=== PATIENT | female | born 1990 | race Hispanic/Latino ===

== ENCOUNTER 2023-11-17 08:59 | Outpatient (CLI) | payer OTHER ==
[2023-11-17 10:35] LABS: #Eosinphils 0.2 10x3/uL (0.0-0.5); #Monocytes 0.4 10x3/uL (0.0-1.1); #Neutrophils 4.8 10x3/uL (1.5-8.4); %Basophils 0.4 % (0.0-2.0); %Eosinophils 2.5 % (0.0-6.0); %Lymphocytes 35.5 % (18.0-47.0); %Neutrophils 56.4 % (40.0-75.0); Hematocrit 41.9 % (34.9-44.5); Hemoglobin 14.2 g/dL (12.0-15.5); Mean Corpuscular HGB CONC 33.9 g/dL (32.0-36.0); Mean Corpuscular Hemoglobin 29.7 pg (27.0-33.0); Mean Corpuscular Volume 87.7 fl (81.6-98.3); Mean Platelet Volume 9.4 fl (7.4-10.4); Platelet Count 331 10x3/uL (150-450); RBC Distribution Width 12.1 % (11.5-14.5); Red Blood Cell (RBC) Count 4.78 10x6/uL (3.90-5.03); White Blood Cell (WBC) Count 8.5 10x3/uL (3.5-10.5)
[2023-11-17 11:13] LABS: BHCG - Serum Negative (NEGATIVE); Pregs Control Background? CLEAR/WHITE (CLR/WHITE); Pregs Control Bar Appear? YES (CONTROL BAR)
[2023-11-17 11:14] LABS: Anion Gap 14 mmol/L (10-20); BUN (Urea Nitrogen) 9 mg/dL (7.0-18.7); Calc. Creatinine Clearance 0 mL/min (70-130); Calcium 9.4 mg/dL (7.8-10.44); Carbon Dioxide 24 mmol/L (22-29); Chloride 104 mmol/L (98-107); Estimated GFR 124; Glucose 79 mg/dL (70-105); Potassium 4.1 mmol/L (3.5-5.1); Sodium 138 mmol/L (136-145)
== END 2023-11-17 09:00 | disposition home or self-care (01) ==
LOC: LABBT 08:59
PROVIDERS: ATTEND Surgery
DX: Z01.812 Encounter for preprocedural laboratory examination (principal); K64.8 Other hemorrhoids
CPT/HCPCS: 80048; 84703; 85025

== ENCOUNTER 2023-11-24 07:22 | Day surgery (SDC) | payer OTHER ==
[2023-11-17 09:31] VITALS: BMI 20.7
[2023-11-24] MEDS ORDERED: cefOXitin 2 GM VIAL ONE (07:56)
[2023-11-24] MEDS ORDERED: Sodium Chloride 0.9% 100 ML ONE (07:57)
[2023-11-24] MEDS ORDERED: PROPOFOL 20 ML ONE (08:12)
[2023-11-24] MEDS ORDERED: Lidocaine 1% PF 5 ML VIAL ONE (08:14)
[2023-11-24] MEDS ORDERED: Rocuronium Bromide 10 MG/ML (10ML VIAL) ONE (08:14)
[2023-11-24] MEDS ORDERED: Lidocaine 2% PF 5 ML VIAL ONE (08:21)
[2023-11-24] MEDS ORDERED: EPINEPHrine 1 MG/ML VIAL ONE (08:21)
[2023-11-24] MEDS ORDERED: Bupivacaine 0.25% HCL 30 ML VIAL ONE (08:21)
[2023-11-24] MEDS ORDERED: Fentanyl 250 MCG/5 ML VIAL ONE (09:04)
[2023-11-24] MEDS ORDERED: PHENYLEPHRINE-NS 100 MCG/ML 10 ML SYRINGE ONE (09:46)
[2023-11-24] MEDS ORDERED: Dexamethasone 20 MG/5 ML VIAL ONE (09:54)
[2023-11-24] MEDS ORDERED: Ondansetron PF 4 MG/2 ML Vial ONE (10:04)
[2023-11-24] MEDS ORDERED: SUGAMMADEX SODIUM 200 MG/2 ML VIAL ONE (10:05)
[2023-11-24] MEDS ORDERED: Albuterol 200 PUFF (6.7GM INHALER) ONE (10:09)
[2023-11-24] MEDS ORDERED: HYDROcodone/Acetaminophen 5/325 mg Tablet ONE (11:44)
== END 2023-11-24 12:47 | disposition home or self-care (01) ==
LOC: SDC 07:22
PROVIDERS: ATTEND Surgery
PROC: 06BY0ZC Excision of Hemorrhoidal Plexus, Open Approach (ICD-10-PCS; principal; 2023-11-24)
DX: K64.8 Other hemorrhoids (principal)
CPT/HCPCS: 88304; J0171; J0694; J1100; J2001; J2405; J2704; J3010; J3490; S0020